=== PATIENT | female | born 1955 | race Caucasian/White ===

== ENCOUNTER → 2017-02-26 | Outpatient (CLI) | payer MEDICARE, OTHER ==
[~2017-02-26] MED LIST: ALPRAZOLAM; ALPRAZOLAM PO; ALPRAZOLAM1 MG PO; AMBIEN PO; AMBIEN10 MG PO; COATED ASPIRIN325 M1 PO; COMBIVENT INH14.7 GM INH; FLEXERIL PO; FUROSEMIDE40 MG PO; HYDROCODON-ACE1 EACH PO; LASIX; LASIX PO; LEVAQUIN750 MG PO; NAPROSYN-EC500 M1 PO; NORVASC PO; PERCOCET5/325 PO; PLAQUENIL200 MG PO; PROTONIX PO; SOMA PO; SYMBICORT INH; SYNTHROID; TOPROL XL; TOPROL XL 50 MG50 MG PO; VIMOVO 500-201 EACH PO; ZOLOFT50 MG PO; [UNRECOGNIZED DRUG - OTHER]
--- NOTE | ~2017-02-26 | CR63 ---
[facility] A Service of [facility] RADIOLOGY TEXT RESULTS PATIENT: HANS DUNN LOCATION: [facility] : 59 UNIT #: [id number] AGE: [address]: Tristen Selby MD SEX: F ORDER DR: [id number] [facility] [address] [place], [place] [address] [id number] O MR#: [id number] Acc #: [id number] NAME: HANS DUNN. : 1955 SEX: F STUDY DATE/TIME: 02/26/2017 14:17 UNIT: [facility] ROOM: STUDY DESCRIPTION: CR Chest 2 View Attending Physician: Tristen Selby M.D. Referring Physician: Tristen Selby M.D. Ordering Physician: Tristen Selby M.D. Primary Care Physician: Marcos Rose M.D. MEDICAL IMAGING REPORT This report is preliminary unless electronic signature is present EXAM Chest 2 views, 02/26/2017 INDICATION 62-year-old female with lung cancer. Symptoms of cough for a month. Diagnosed with cancer in 2010. Quit smoking in 2010. TECHNIQUE 2 views of the chest COMPARISON No comparisons FINDINGS Cardiac silhouette is stable. The vascularity is unremarkable. Right lung is clear. Chronic volume loss on the left and atelectatic change in the lower lung zone. Postop changes in the perihilar left lung are present. No pneumothorax. IMPRESSION Chronic postoperative changes in the left lung. No definite superimposed active disease or other significant change. Dictated by... Demarcus Todd M.D. THIS IS AN ELECTRONICALLY VERIFIED REPORT Demarcus Todd M.D. at 02/26/2017 8:11 PM Laurel TD: 02/26/2017 16:55 JOB #: [id number] [facility] A Service [facility] RADIOLOGY TEXT RESULTS PATIENT: HANS DUNN LOCATION: [facility] : 59 UNIT #: [id number] AGE: [address]: Tristen Selby MD SEX: F ORDER DR: MEDICAL IMAGING REPORT Page 1 of 1 COPY
== END | disposition home or self-care (01) ==
LOC: CRAD 14:00
DX: C34.90 Malignant neoplasm of unspecified part of unspecified bronchus or lung (principal); Z98.890 Other specified postprocedural states
CPT/HCPCS: 71020